=== PATIENT | male | born 1955 | race African-American/Black ===

== ENCOUNTER 2018-12-02 13:36 | Inpatient (IN) | payer OTHER ==
[2018-12-02 17:53] VITALS: BMI 28.2
--- NOTE | 2018-12-02 20:16 | HP ---
CIWA Score Nausea/Vomitin (vomiting x 1) Muscle Tremors: 4-Moderate,w/Arms Extend Anxiety: 3 Agitation: 0-Normal Activity Paroxysmal Sweats: 2 Orientation: 0-Oriented Tacttile Disturbances: 0-None Auditory Disturbances: 0-None Visual Disturbances: 0-None Headache: 4-Moderately Severe CIWA-Ar Total Score: 15 - Admission Criteria OASAS Guidelines: Admission for Medically Managed Detox: Requires at least one of the followin. CIWA greater than 12 2. Seizures within the past 24 hours 3. Delirium tremens within the past 24 hours 4. Hallucinations within the past 24 hours 5. Acute intervention needed for co occurring medical disorder 6. Acute intervention needed for co occurring psychiatric disorder 7. Severe withdrawal that cannot be handled at a lower level of care (continued vomiting, continued diarrhea, abnormal vital signs) requiring intravenous medication and/or fluids 8. Admission ROS [facility] Chief Complaint: Seeking admission to detox for alcohol, benzo. and heroin dependence Allergies/Adverse Reactions: Allergies Allergy/AdvReac Type Severity Reaction Status Date / Time No Known Allergies Allergy Verified 12/02/18 20:18 History of Present Illness: 63 years old male with a long history of alcohol, heroine and benzo. dependence is seeking admission to detox. This is his first admission to [facility] but patient reports previous admissions to detox, last at [facility]. He has medical history of Prostate cancer, depression, hypertension, arthritis and insomnia. He denies suicide attempt and suicidal ideation at his time. He reports that he is on Methadone 75mg tablet oral daily with [facility] MMTP. Dose is yet to be confirmed by the nurse. - Ebola screening Have you traveled outside of the country in the last 21 days: No Have you had contact with anyone from an Ebola affected area: No Have you been sick,other than usual withdrawal symptoms: No Do you have a fever: No - Review of Systems Constitutional: Chills, Malaise, Night Sweats EENT: reports: Blurred Vision Respiratory: reports: No Symptoms reported Cardiac: reports: No Symptoms Reported GI: reports: Diarrhea, Poor Appetite, Poor Fluid Intake, Vomiting, Abdominal cramping : reports: No Symptoms Reported Musculoskeletal: reports: Back Pain, Joint Pain Integumentary: reports: Dryness, Flushing Neuro: reports: Tremors Endocrine: reports: No Symptoms Reported Hematology: reports: No Symptoms Reported Psychiatric: reports: Anxious, Depressed Other Systems: Reviewed and Negative Patient History - Patient Medical History Hx Anemia: No Hx Asthma: No Hx Chronic Obstructive Pulmonary Disease (COPD): No Hx Cancer: Yes (PROSTATE CANCER TREATED 2017 WITH RADIATION) Hx Cardiac Disorders: No Hx Congestive Heart Failure: No Hx Hypertension: Yes (NOT ON MEDICATION) Hx Hypercholesterolemia: No Hx Pacemaker: No HX Cerebrovascular Accident: No Hx Seizures: No Hx Dementia: No Hx Diabetes: No Hx Gastrointestinal Disorders: No Hx Genitourinary Disorders: Yes (PROSTATE CANCER) Hx Sexually Transmitted Disorders: No Hx Renal Disease (ESRD): No Hx Thyroid Disease: No Hx Human Immunodeficiency Virus (HIV): No (NEGATIVE 2016) Hx Hepatitis C: No Hx Depression: Yes (TRAZODONE) Hx Suicide Attempt: No (DENIES SUICIDAL IDEATION AT THIS TIME) Hx Bipolar Disorder: Yes (NOT ON MEDICATION) Hx Schizophrenia: No Other Medical History: ANXIETY- NOT ON MEDICATION - Patient Surgical History Past Surgical History: No - PPD History Previous Implant?: Yes Documented Results: Negative w/o proof Implanted On Prior R Admission?: No PPD to be Administered?: Yes - Reproductive History Patient is a Female of Child Bearing Age (11 -55 yrs old): No (MALE) - Smoking Cessation Smoking history: Current every day smoker Have you smoked in the past 12 months: Yes Aproximately how many cigarettes per day: 10 Hx Chewing Tobacco Use: No Initiated information on smoking cessation: Yes 'Breaking Loose' booklet given: 12/02/18 - Substance & Tx. History Hx Alcohol Use: Yes Hx Substance Use: Yes Substance Use Type: Alcohol, Cocaine, Heroin, Opiates Hx Substance Use [facility]: Yes [facility] - Substances Abused Alprazolam (Xanax) Route: Oral Frequency: Daily Amount used: 2/2MG Age of first use: 58 Date of Last Use: 12/02/18 Benzodiazepine (Klonopin) Route: Oral Frequency: Daily Amount used: 2/2MG Age of first use: 58 Date of Last Use: 12/02/18 Heroin Route: SNIFF Frequency: Daily Amount used: 4 BAGS Age of first use: 25 Date of Last Use: 12/02/18 Alcohol Route: Oral Frequency: Daily Amount used: RUM- 1 PINT Age of first use: 14 Date of Last Use: 12/02/18 Family Disease History - Family Disease History Family History: Denies Admission Physical Exam [facility] - Vital Signs Vital Signs: Vital Signs - 24 hr 12/02/18 17:48 Temperature 97.1 F L Pulse Rate 60 Respiratory 18 Rate Blood Pressure 138/87 - Physical General Appearance: Yes: Moderate Distress, Tremorous, Irritable, Sweating, Anxious HEENTM: Yes: EOMI, Normal ENT Inspection, Normal Voice, TIP Respiratory: Yes: Lungs Clear, Normal Breath Sounds, No Respiratory Distress Neck: Yes: Supple Breast: Yes: Breast Exam Deferred Cardiology: Yes: Regular Rhythm, Regular Rate Abdominal: Yes: Normal Bowel Sounds, Soft Genitourinary: Yes: Within Normal Limits Back: Yes: Normal Inspection Musculoskeletal: Yes: Within Normal Limits Extremities: Yes: Tremors Neurological: Yes: Alert, Normal Mood/Affect Integumentary: Yes: Warm Lymphatic: Yes: Within Normal Limits - Diagnostic (1) Alcohol dependence with uncomplicated withdrawal Current Visit: Yes Status: Chronic (2) Opioid dependence with withdrawal Current Visit: Yes Status: Chronic (3) Sedative, hypnotic or anxiolytic dependence with withdrawal, uncomplicated Current Visit: Yes Status: Chronic (4) Prostate cancer Current Visit: Yes Status: Resolved (5) Hypertension Current Visit: Yes Status: Chronic Qualifiers: Hypertension type: essential hypertension Qualified Code(s): I10 - Essential (primary) hypertension (6) Depression Current Visit: Yes Status: Chronic (7) Bipolar disorder Current Visit: Yes Status: Acute (8) Arthritis Current Visit: Yes Status: Acute (9) Insomnia Current Visit: Yes Status: Chronic Cleared for Admission [facility] - Detox or Rehab [facility] Level of Care: Medically Managed Detox Regimen/Protocol: Valium [facility] Breath Alcohol Content Breath Alcohol Content: 0.010 Urine Drug Screen - Results Urine Drug Screen Results: LIZETT-Cocaine, OPI-Opiates, BZO-Benzodiazepines, MTD- Methadone, FEN-Fentanyl Inpatient Rehab Admission - Rehab Decision to Admit Inpatient rehab admission?: No
[2018-12-02] MEDS ORDERED: MENTHOL/PHENOL 1 EACH UD MM PRN (20:39)
[2018-12-02] MEDS ORDERED: IBUPROFEN 400 MG TABLET (FP) PO PRN (20:39)
[2018-12-02] MEDS ORDERED: MAGNESIUM HYDROX 2400MG/30ML ORAL SUSPENSION 30 ML CUP PO PRN (20:39)
[2018-12-02] MEDS ORDERED: NICOTINE POLACRILEX 2 MG GUM BUC PRN (20:39)
[2018-12-02] MEDS ORDERED: hydrOXYzine PAMOATE 25 MG CAPSULE (FP) PO PRN (20:39)
[2018-12-02] MEDS ORDERED: ACETAMINOPHEN 325 MG TABLET (FP) PO PRN ×2 (20:39)
[2018-12-02] MEDS ORDERED: METHOCARBAMOL 500 MG TABLET PO PRN (20:39)
[2018-12-02] MEDS ORDERED: MELATONIN 5 MG TABLETS PO PRN (20:39)
[2018-12-02] MEDS ORDERED: BISMUTH SUBSALICYLATE 524 MG/30 ML UD PO PRN (20:39)
[2018-12-02] MEDS ORDERED: MAG HYDROX/AL HYDROX/SIMETH 30 ML UNIT-DOSE CUP PO PRN (20:39)
[2018-12-02] MEDS ORDERED: MAGNESIUM CITRATE 300 ML BOTTLE PO PRN (20:39)
[2018-12-02] MEDS ORDERED: diazePAM 5 MG TABLET PO ONE (20:42)
[2018-12-02] MEDS: THIAMINE HCL 100 MG TABLET (FP) PO SCH (22:47)
[2018-12-02] MEDS: diazePAM 5 MG TABLET PO SCH (22:52)
[2018-12-03] MEDS: diazePAM 5 MG TABLET PO SCH ×3 (05:08→22:05)
[2018-12-03] MEDS: diazePAM 5 MG TABLET PO PRN (08:44)
[2018-12-03] MEDS ORDERED: METHADONE HCL 10 MG TABLET ONE (09:55)
[2018-12-03] MEDS ORDERED: METHADONE HCL 40 MG DISPERSABLE TABLET ONE (09:56)
[2018-12-03] MEDS ORDERED: METHADONE HCL 5 MG TABLET ONE (09:56)
[2018-12-03] MEDS ORDERED: METHADONE 40 MG, METHADONE 30 MG, METHADONE 5 MG PO ONE (10:00)
[2018-12-03] MEDS ORDERED: METHADONE HCL 10 MG TABLET PO ONE (10:00)
[2018-12-03] MEDS: NICOTINE 14 MG/24 HOURS TOPICAL PATCH TD SCH (10:13)
[2018-12-03] MEDS: PRENATAL VITAMINS W/ FOLIC ACID TABLET (FP) PO SCH (10:14)
[2018-12-03 11:05] LABS: HEMATOCRIT 38.8 % (35.4-49); HEMOGLOBIN 13.4 GM/dL (11.7-16.9); MCH 29.7 pg (25.7-33.7); MCHC 34.5 g/dl (32.0-35.9); MEAN CELL VOLUME 86.3 fl (80-96); MEAN PLT VOLUME 7.4 fl (7.5-11.1); PLATELET COUNT 175 K/MM3 (134-434); RBC 4.49 M/mm3 (4.00-5.60); RDW 14.4 % (11.9-15.9); WHITE BLOOD COUNT 2.8 K/mm3 (4.0-10.0)
--- NOTE | 2018-12-03 11:14 | PN ---
S CIWA - CIWA Score Nausea/Vomitin-No Nausea/No Vomiting Muscle Tremors: 2 Anxiety: 3 Agitation: 2 Paroxysmal Sweats: 1-Minimal Palms Moist Orientation: 1-Uncertain about Date Tacttile Disturbances: 0-None Auditory Disturbances: 0-None Visual Disturbances: 0-None Headache: 2-Mild CIWA-Ar Total Score: 11 [facility] Progress Note (SOAP) Subjective: feeling better after methadone 75 mg and valium helps Objective: 12/03/18 11:15 Vital Signs Temperature 96.7 F L 12/03/18 09:57 Pulse Rate 63 12/03/18 09:57 Respiratory Rate 12/03/18 09:57 Blood Pressure 123/81 12/03/18 09:57 O2 Sat by Pulse Oximetry (%) 12/03/18 11:15 lab pending Assessment: 12/03/18 11:15 alcohol and benzo withdrawal sx Plan: continue detox
[2018-12-03 11:38] LABS: ALBUMIN 3.3 g/dl (3.4-5.0); ALK PHOS 391 U/L (45-117); ANION GAP 7 MMOL/L (8-16); BILIRUBIN,TOTAL 0.3 mg/dL (0.2-1); BLOOD UREA NITROGEN 15 mg/dL (7-18); CALCIUM 8.6 mg/dL (8.5-10.1); CHLORIDE 104 mmol/L (98-107); CO2 30 mmol/L (21-32); CREATININE 0.9 mg/dL (0.55-1.3); GLUCOSE,RANDOM 87 mg/dL (74-106); POTASSIUM 3.6 mmol/L (3.5-5.1); SGOT/AST 42 U/L (15-37); SGPT/ALT 32 U/L (13-61); SODIUM 141 mmol/L (136-145); TOT PROT 6.5 g/dl (6.4-8.2)
--- NOTE | 2018-12-03 12:36 | CONSULT ---
[facility] Psychiatric Consult - Data Date of interview: 12/03/18 Admission source: [facility] Identifying data: Patient is a 63 year old single male, father of two, unemployed, domiciled, and is supported by [facility]. This is patient's first admission to detox. Patient admitted to for alcohol, opiate, and benzodiazepine dependence. Substance Abuse History: Substances Abused. Alprazolam (Xanax). Route: Oral. Frequency: Daily. Amount used: 2/2MG. Age of first use: 58. Date of Last Use: 12/02/18. Benzodiazepine (Klonopin). Route: Oral. Frequency: Daily. Amount used: 2/2MG. Age of first use: 58. Date of Last Use: 12/02/18. Heroin. Route: SNIFF. Frequency: Daily. Amount used: 4 BAGS. Age of first use: 25. Date of Last Use: 12/02/18. Alcohol. Route: Oral. Frequency: Daily. Amount used: RUM- 1 PINT. Age of first use: 14. Date of Last Use: 12/02/18 Medical History: hypertension, Prostate cancer Psychiatric History: Patient's first psychiatric contact was in [id number] to address depression. He saw a psychiatrist in an outpatient clinic and was prescribed trazodone (unknown dose). He denies h/o psychiatric hospitalization and suicide attempt. Patient is no longer receiving outpatient psychiatric care. He is currently on methadone maintenance of 70 mg daily at [facility]. At present he reports feeling sad and is experiencing difficulty sleeping. Physical/Sexual Abuse/Trauma History: denies. Mental Status Exam - Mental Status Exam Alert and Oriented to: Time, Place, Person Cognitive Function: Good Patient Appearance: Well Groomed Mood: Sad Affect: Mood Congruent Patient Behavior: Appropriate, Cooperative Speech Pattern: Appropriate Voice Loudness: Normal Thought Process: Intact, Goal Oriented Thought Disorder: Not Present Hallucinations: Denies Suicidal Ideation: Denies Homicidal Ideation: Denies Insight/Judgement: Poor Sleep: Poorly Appetite: Fair Muscle strength/Tone: Normal Gait/Station: Normal Psychiatric Findings - Problem List ([place] 1, 2,3) (1) Methadone maintenance therapy patient Current Visit: Yes Status: Acute (2) Cocaine dependence Current Visit: Yes Status: Chronic (3) Alcohol dependence with uncomplicated withdrawal Current Visit: Yes Status: Acute (4) Sedative, hypnotic or anxiolytic dependence with withdrawal, uncomplicated Current Visit: Yes Status: Acute (5) Substance induced mood disorder Current Visit: Yes Status: Acute (6) Substance-induced sleep disorder Current Visit: Yes Status: Acute - Initial Treatment Plan Initial Treatment Plan: Psycheducation provided. Detoxification in progress. Will order Trazodone 50mg HS. Benefits and side effects discussed. Patient made aware of the risk of priapism. Verbal consent given.
[2018-12-03] MEDS: TAMSULOSIN HCL 0.4 MG CAP PO SCH (14:36)
[2018-12-03] MEDS: THIAMINE HCL 100 MG TABLET (FP) PO SCH (22:06)
[2018-12-03] MEDS: traZODone HCL 50 MG TABLET (FP) PO SCH (22:06)
[2018-12-04] MEDS ORDERED: METHADONE HCL 10 MG TABLET ONE (04:34)
[2018-12-04] MEDS ORDERED: METHADONE HCL 40 MG DISPERSABLE TABLET ONE (04:34)
[2018-12-04] MEDS ORDERED: METHADONE HCL 5 MG TABLET ONE (04:35)
[2018-12-04] MEDS: METHADONE 40 MG, METHADONE 30 MG, METHADONE 5 MG PO SCH (05:11)
[2018-12-04] MEDS: diazePAM 5 MG TABLET PO PRN (05:14)
[2018-12-04] MEDS ORDERED: METHADONE HCL 10 MG TABLET PO SCH (06:00)
[2018-12-04] MEDS: TAMSULOSIN HCL 0.4 MG CAP PO SCH (10:08)
[2018-12-04] MEDS: PRENATAL VITAMINS W/ FOLIC ACID TABLET (FP) PO SCH (10:08)
[2018-12-04] MEDS: diazePAM 5 MG TABLET PO SCH ×2 (10:09→22:03)
[2018-12-04] MEDS: NICOTINE 14 MG/24 HOURS TOPICAL PATCH TD SCH (10:09)
--- NOTE | 2018-12-04 15:30 | PN ---
[facility] CIWA - CIWA Score Nausea/Vomitin-No Nausea/No Vomiting Muscle Tremors: 3 Anxiety: 2 Agitation: 0-Normal Activity Paroxysmal Sweats: 2 Orientation: 0-Oriented Tacttile Disturbances: 2-Mild Itch/Numbness/Burn Auditory Disturbances: 0-None Visual Disturbances: 1-Very Mild Sensitivity Headache: 0-None Present CIWA-Ar Total Score: 10 [facility] Progress Note (SOAP) Subjective: Body Aches, Fatigue. Objective: PATIENT A & O X 3. IN NO ACUTE DISTRESS. 12/04/18 15:31 Vital Signs Temperature 97 F L 12/04/18 13:42 Pulse Rate 71 12/04/18 13:42 Respiratory Rate 18 12/04/18 13:42 Blood Pressure 138/74 12/04/18 13:42 O2 Sat by Pulse Oximetry (%) Laboratory Tests 12/03/18 12/03/18 12/03/18 07:30 07:30 07:30 WBC 2.8 L RBC 4.49 Hgb 13.4 Hct 38.8 MCV 86.3 MCH 29.7 MCHC 34.5 RDW 14.4 Plt Count 175 MPV 7.4 L Sodium 141 Potassium 3.6 Chloride 104 Carbon Dioxide 30 Anion Gap 7 L BUN 15 Creatinine 0.9 Creat Clearance w eGFR 84.69 Random Glucose 87 Calcium 8.6 Total Bilirubin 0.3 AST 42 H ALT 32 Alkaline Phosphatase 391 H Total Protein 6.5 Albumin 3.3 L RPR Titer Nonreactive LABS NOTED. Assessment: 12/04/18 15:31 WITHDRAWAL SYMPTOMS. ELEVATED ALKALINE PHOSPHATASE LEVEL. LEUKOPENIA. 12/04/18 15:32 Plan: CONTINUE DETOX. PATIENT ADVISED TO FOLLOW-UP WITH DRUPAL DEVELOPER SOON POSSIBLE AFTER DISCHARGE FROM DETOX UNIT FOR GENERAL MEDICAL ASSESSMENT AND FOR ELEVATED ALKALINE PHOSPHATASE LEVEL NOTED WHILE ADMITTED FOR DETOX. PATIENT VERBALIZED UNDERSTANDING OF RECOMMENDATION. COPIES OF RESULTS OF ALL LABS DRAWN WHILE ADMITTED FOR DETOX WILL BE GIVEN TO PATIENT AT TIME OF DISCHARGE FROM DETOX UNIT
[2018-12-04] MEDS: METHYL SALICYLATE/MENTHOL OINT 30 GM TUBE TP SCH (18:00)
[2018-12-04] MEDS: traZODone HCL 50 MG TABLET (FP) PO SCH (22:03)
[2018-12-04] MEDS: THIAMINE HCL 100 MG TABLET (FP) PO SCH (22:03)
[2018-12-05] MEDS ORDERED: METHADONE HCL 10 MG TABLET ONE (04:48)
[2018-12-05] MEDS ORDERED: METHADONE HCL 5 MG TABLET ONE (04:48)
[2018-12-05] MEDS ORDERED: METHADONE HCL 40 MG DISPERSABLE TABLET ONE (04:48)
[2018-12-05] MEDS: METHADONE 40 MG, METHADONE 30 MG, METHADONE 5 MG PO SCH (05:08)
[2018-12-05] MEDS ORDERED: diazePAM 5 MG TABLET PO SCH (06:00)
[2018-12-05] MEDS: METHYL SALICYLATE/MENTHOL OINT 30 GM TUBE TP SCH (10:12)
[2018-12-05] MEDS: PRENATAL VITAMINS W/ FOLIC ACID TABLET (FP) PO SCH (10:12)
[2018-12-05] MEDS: TAMSULOSIN HCL 0.4 MG CAP PO SCH (10:12)
[2018-12-05] MEDS: NICOTINE 14 MG/24 HOURS TOPICAL PATCH TD SCH (10:13)
--- NOTE | 2018-12-05 15:29 | PN ---
[facility] Progress Note (SOAP) Subjective: Sweating, Fatigue, Anxious, Interrupted Sleep. Objective: PATIENT A & O X 3, OBSERVED AMBULATING ON UNIT. IN NO ACUTE DISTRESS. 12/05/18 15:27 Vital Signs Temperature 97.7 F 12/05/18 13:39 Pulse Rate 70 12/05/18 13:39 Respiratory Rate 18 12/05/18 13:39 Blood Pressure 134/81 12/05/18 13:39 O2 Sat by Pulse Oximetry (%) Laboratory Tests 12/03/18 12/03/18 12/03/18 07:30 07:30 07:30 WBC 2.8 L RBC 4.49 Hgb 13.4 Hct 38.8 MCV 86.3 MCH 29.7 MCHC 34.5 RDW 14.4 Plt Count 175 MPV 7.4 L Sodium 141 Potassium 3.6 Chloride 104 Carbon Dioxide 30 Anion Gap 7 L BUN 15 Creatinine 0.9 Creat Clearance w eGFR 84.69 Random Glucose 87 Calcium 8.6 Total Bilirubin 0.3 AST 42 H ALT 32 Alkaline Phosphatase 391 H Total Protein 6.5 Albumin 3.3 L RPR Titer Nonreactive LABS NOTED. Assessment: 12/05/18 15:28 WITHDRAWAL SYMPTOMS. LEUKOPENIA. ELEVATED ALKALINE PHOSPHATASE LEVEL. PATIENT REPORTS HISTORY OF PROSTATE CA (WITH TREATMENT) AND OF HTN. PATIENT DENIES ANY OTHER SIGNIFICANT CHRONIC MEDICAL HISTORY. 12/05/18 15:28 Plan: CONTINUE DETOX. DUE TO PRESENCE AND SEVERITY OF LINGERING WITHDRAWAL SYMPTOMS, PATIENT PERMITTED TO REMAIN ON DETOX UNIT UNTIL TOMORROW AM.
--- NOTE | 2018-12-05 17:05 | EKG ---
Test Reason : Blood Pressure : / mmHG Vent. Rate : 059 BPM Atrial Rate : 059 BPM P-R Int : 146 ms QRS Dur : 078 ms QT Int : 430 ms P-R-T Axes : 050 056 048 degrees QTc Int : 425 ms SINUS BRADYCARDIA OTHERWISE NORMAL ECG NO PREVIOUS ECGS AVAILABLE Confirmed by ALISSA RICHEY MD ([id number]) on 12/05/2018 5:05:17 PM Referred By: Confirmed By:ALISSA RICHEY MD
[2018-12-05] MEDS: traZODone HCL 50 MG TABLET (FP) PO SCH (22:18)
[2018-12-05] MEDS: THIAMINE HCL 100 MG TABLET (FP) PO SCH (22:18)
[2018-12-06] MEDS ORDERED: METHADONE HCL 40 MG DISPERSABLE TABLET ONE (03:40)
[2018-12-06] MEDS ORDERED: METHADONE HCL 5 MG TABLET ONE (03:40)
[2018-12-06] MEDS ORDERED: METHADONE HCL 10 MG TABLET ONE (03:40)
[2018-12-06] MEDS: METHADONE 40 MG, METHADONE 30 MG, METHADONE 5 MG PO SCH (05:40)
[2018-12-06 06:22] VITALS: BP 126/71; PULSE 59; TEMP 98
--- NOTE | 2018-12-06 08:38 | DS ---
[facility] Detox Discharge Summary Admission Date: 12/02/18 Discharge Date: 12/06/18 - History Present History: Alcohol Dependence, Sedative Dependence Additional Comments: 63 years old male admitted on 12/02/18 for alcohol and benzo withdrawal stabilization completed detox regimen aftercare patient preferring return to methadone program for medical and mental issues Pertinent Past History: keep medication list in wallet medication adherence update medication list when change medication bring in lab report to follow up appointment - Physical Exam Results Vital Signs: Vital Signs Temperature 98.0 F 12/06/18 06:21 Pulse Rate 59 L 12/06/18 06:21 Respiratory Rate 18 12/06/18 06:26 Blood Pressure 126/71 12/06/18 06:21 O2 Sat by Pulse Oximetry (%) Pertinent Admission Physical Exam Findings: alcohol and benzo withdrawal sx Laboratory Last Values WBC 2.8 K/mm3 (4.0-10.0) L 12/03/18 07:30 RBC 4.49 M/mm3 (4.00-5.60) 12/03/18 07:30 Hgb 13.4 GM/dL (11.7-16.9) 12/03/18 07:30 Hct 38.8 % (35.4-49) 12/03/18 07:30 MCV 86.3 fl (80-96) 12/03/18 07:30 MCH 29.7 pg (25.7-33.7) 12/03/18 07:30 MCHC 34.5 g/dl (32.0-35.9) 12/03/18 07:30 RDW 14.4 % (11.9-15.9) 12/03/18 07:30 Plt Count 175 K/MM3 (134-434) 12/03/18 07:30 MPV 7.4 fl (7.5-11.1) L 12/03/18 07:30 Sodium 141 mmol/L (136-145) 12/03/18 07:30 Potassium 3.6 mmol/L (3.5-5.1) 12/03/18 07:30 Chloride 104 mmol/L (98-107) 12/03/18 07:30 Carbon Dioxide 30 mmol/L (21-32) 12/03/18 07:30 Anion Gap 7 MMOL/L (8-16) L 12/03/18 07:30 BUN 15 mg/dL (7-18) 12/03/18 07:30 Creatinine 0.9 mg/dL (0.55-1.3) 12/03/18 07:30 Creat Clearance w eGFR 84.69 (>60) 12/03/18 07:30 Random Glucose 87 mg/dL (74-106) 12/03/18 07:30 Calcium 8.6 mg/dL (8.5-10.1) 12/03/18 07:30 Total Bilirubin 0.3 mg/dL (0.2-1) 12/03/18 07:30 AST 42 U/L (15-37) H 12/03/18 07:30 ALT 32 U/L (13-61) 12/03/18 07:30 Alkaline Phosphatase 391 U/L (45-117) H 12/03/18 07:30 Total Protein 6.5 g/dl (6.4-8.2) 12/03/18 07:30 Albumin 3.3 g/dl (3.4-5.0) L 12/03/18 07:30 RPR Titer Nonreactive (NONREACTIVE) 12/03/18 07:30 lab noted - Treatment Hospital Course: Detox Protocol Followed, Detoxed Safely, Responded well, Discharged Condition Good, Rehab Referral Accepted Patient has Accepted a Rehab Referral to: methadone maintenance program - Medication Discharge Medications: Ambulatory Orders Tamsulosin HCl [Flomax] 0.4 mg PO DAILY 14 Days #14 capsule 12/05/18 - Diagnosis (1) Alcohol dependence with uncomplicated withdrawal Status: Acute (2) Sedative, hypnotic or anxiolytic dependence with withdrawal, uncomplicated Status: Acute (3) Hypertension Status: Chronic Qualifiers: Hypertension type: essential hypertension Qualified Code(s): I10 - Essential (primary) hypertension (4) Methadone maintenance therapy patient Status: Chronic (5) Substance induced mood disorder Status: Suspected - AMA Did Patient Leave Against Medical Advice: No
== END 2018-12-06 09:27 | disposition home or self-care (01) | DRG 897 ==
LOC: YASAS 13:36 → Y3N 19:53
PROVIDERS: ADMIT Surgery; ATTEND Surgery
PROC: HZ2ZZZZ Detoxification Services for Substance Abuse Treatment (ICD-10-PCS; principal; 2018-12-02)
DX: F10.230 Alcohol dependence with withdrawal, uncomplicated (principal); F14.20 Cocaine dependence, uncomplicated; F11.20 Opioid dependence, uncomplicated; F19.282 Other psychoactive substance dependence with psychoactive substance-induced sleep disorder; F13.230 Sedative, hypnotic or anxiolytic dependence with withdrawal, uncomplicated; F19.24 Other psychoactive substance dependence with psychoactive substance-induced mood disorder; F41.8 Other specified anxiety disorders; F31.9 Bipolar disorder, unspecified; G47.00 Insomnia, unspecified; D72.819 Decreased white blood cell count, unspecified; R74.8 Abnormal levels of other serum enzymes; M12.9 Arthropathy, unspecified; Z85.46 Personal history of malignant neoplasm of prostate
CPT/HCPCS: 36415; 80053; 85027; 86593; 93005; 93010

== ENCOUNTER 2019-01-30 16:29 | Inpatient (IN) | payer OTHER ==
--- NOTE | 2019-01-30 20:09 | HP ---
COWS - Scale Resting Pulse: 1= IA 81-100 Sweatin=Flushed/Facial Moisture Restless Observation: 1= Difficult to Sit Still Pupil Size: 1= Pupils >than Normal Bone or Joint Aches: 1= Mild Discomfort Runny Nose/ Eye Tearin= Nasal Congestion GI Upset > 30mins: 1= Stomach Cramp Tremor Observation: 2= Slight Tremor Visible Yawning Observation: 0= None Anxiety or Irritability: 1=Feels Anxious/Irritable Goose Flesh Skin: 0=Smooth Skin COWS Score: 11 CIWA Score Nausea/Vomitin Muscle Tremors: 2 Anxiety: 2 Agitation: 2 Paroxysmal Sweats: 2 Orientation: 0-Oriented Tacttile Disturbances: 2-Mild Itch/Numbness/Burn Auditory Disturbances: 2-Mild Harshness/Frighten Visual Disturbances: 2-Mild Sensitivity Headache: 2-Mild CIWA-Ar Total Score: 18 - Admission Criteria OASAS Guidelines: Admission for Medically Managed Detox: Requires at least one of the followin. CIWA greater than 12 2. Seizures within the past 24 hours 3. Delirium tremens within the past 24 hours 4. Hallucinations within the past 24 hours 5. Acute intervention needed for co occurring medical disorder 6. Acute intervention needed for co occurring psychiatric disorder 7. Severe withdrawal that cannot be handled at a lower level of care (continued vomiting, continued diarrhea, abnormal vital signs) requiring intravenous medication and/or fluids 8. Admission ROS [facility] - HPI Chief Complaint: DEPENDENT ON ETOH, HEROIN, COCAINE AND XANAX HE IS ON 80 MGS. OF MMTP - LAST DOSE THIS AM Allergies/Adverse Reactions: Allergies Allergy/AdvReac Type Severity Reaction Status Date / Time No Known Allergies Allergy Verified 12/02/18 20:18 History of Present Illness: THE PT. IS REQUESTING ADMISSION TO THE DETOX UNIT AND CAME FOR MEDICAL CLEARANCE AND H AND PE Exam Limitations: No Limitations - Ebola screening Have you traveled outside of the country in the last 21 days: No Have you had contact with anyone from an Ebola affected area: No Have you been sick,other than usual withdrawal symptoms: No - Review of Systems Constitutional: See HPI, Malaise, Weakness EENT: reports: See HPI Respiratory: reports: See HPI Cardiac: reports: See HPI GI: reports: See HPI, Nausea, Abdominal cramping : reports: See HPI Musculoskeletal: reports: See HPI, Muscle Pain, Muscle Weakness Integumentary: reports: See HPI, Sweating Neuro: reports: See HPI, Headache, Tremors, Weakness Endocrine: reports: See HPI Hematology: reports: See HPI Psychiatric: reports: Judgement Intact, Orientated x3, Anxious, Depressed Patient History - Patient Medical History Hx Anemia: No Hx Asthma: No Hx Chronic Obstructive Pulmonary Disease (COPD): No Hx Cancer: Yes (PROSTATE CANCER TREATED 2017 WITH RADIATION) Hx Cardiac Disorders: No Hx Congestive Heart Failure: No Hx Hypertension: Yes (NOT ON MEDICATION) Hx Hypercholesterolemia: No Hx Pacemaker: No HX Cerebrovascular Accident: No Hx Seizures: No Hx Dementia: No Hx Diabetes: No Hx Gastrointestinal Disorders: No Hx Genitourinary Disorders: Yes (PROSTATE CANCER) Hx Sexually Transmitted Disorders: No Hx Renal Disease (ESRD): No Hx Thyroid Disease: No Hx Human Immunodeficiency Virus (HIV): No (NEGATIVE 2016) Hx Hepatitis C: No Hx Depression: Yes (TRAZODONE) Hx Suicide Attempt: No (DENIES SUICIDAL IDEATION AT THIS TIME) Hx Bipolar Disorder: Yes (NOT ON MEDICATION) Hx Schizophrenia: No Other Medical History: ANXIETY AND INSOMNIA - Patient Surgical History Past Surgical History: No - PPD History Date: 12/04/18 - Smoking Cessation Smoking history: Current every day smoker Have you smoked in the past 12 months: Yes Aproximately how many cigarettes per day: 1 Hx Chewing Tobacco Use: No Initiated information on smoking cessation: Yes 'Breaking Loose' booklet given: 01/30/19 - Substance & Tx. History Hx Alcohol Use: Yes Hx Substance Use: Yes Substance Use Type: Alcohol, Cocaine, Heroin, Prescribed, Tranquilizers Hx Substance Use Treatment: Yes - Substances abused Heroin Substance route: Injection Frequency: 3-6 times per week Amount used: up to 10 B/EACH TIME Age of first use: 21 Date of last use: 01/28/19 Alcohol Substance route: Oral Frequency: Daily Amount used: LIQUOR 1-2 P/D Age of first use: 14 Date of last use: 01/30/19 Alprazolam (Xanax) Substance route: Oral Frequency: Daily Amount used: 4-5 STICKS/D Age of first use: 53 Date of last use: 01/30/19 Cocaine Substance route: Smoking Frequency: 3-6 times per week Amount used: $100/EACH TIME Age of first use: 28 Date of last use: 01/30/19 Family Disease History - Family Disease History Family History: Denies Admission Physical Exam [facility] - Physical General Appearance: Yes: No Apparent Distress, Nourished, Appropriately Dressed , Tremorous, Sweating, Anxious HEENTM: Yes: Hearing grossly Normal, Normocephalic, Normal Voice, TIP, Pharynx Normal Respiratory: Yes: Chest Non-Tender, Lungs Clear, Normal Breath Sounds, No Respiratory Distress, No Accessory Muscle Use Neck: Yes: No masses,lesions,Nodules, Supple, Trachea in good position Breast: Yes: Breast Exam Deferred, Axillae without masses Cardiology: Yes: Regular Rhythm, S1, S2, Tachycardia Abdominal: Yes: Normal Bowel Sounds, Non Tender, Soft, Protuberent Back: Yes: Normal Inspection Musculoskeletal: Yes: full range of Motion, Gait Steady, Pelvis Stable, Muscle Pain, Muscle weakness Extremities: Yes: Normal Capillary Refill, Normal Range of Motion, Non-Tender, Tremors Neurological: Yes: bicycle designer II-XII NML intact, Fully Oriented, Alert, Motor Strength 5/5, Normal Response Integumentary: Yes: Normal Color, Warm, Moist Lymphatic: Yes: Within Normal Limits - Diagnostic (1) Heroin dependence Current Visit: Yes Status: Chronic (2) Alcohol dependence with uncomplicated withdrawal Current Visit: No Status: Chronic (3) Bipolar disorder Current Visit: No Status: Chronic Qualifiers: Active/Remission status: remission status unspecified Qualified Code(s): F31.9 - Bipolar disorder, unspecified (4) Sedative, hypnotic or anxiolytic dependence with withdrawal, uncomplicated Current Visit: No Status: Chronic (5) Cocaine dependence Current Visit: No Status: Chronic Qualifiers: Substance use status: uncomplicated Qualified Code(s): F14.20 - Cocaine dependence, uncomplicated (6) Depression Current Visit: No Status: Chronic Qualifiers: Depression Type: unspecified Qualified Code(s): F32.9 - Major depressive disorder, single episode, unspecified (7) Hypertension Current Visit: No Status: Chronic Qualifiers: Hypertension type: essential hypertension Qualified Code(s): I10 - Essential (primary) hypertension (8) Insomnia Current Visit: No Status: Chronic Qualifiers: Insomnia type: unspecified Qualified Code(s): G47.00 - Insomnia, unspecified (9) Methadone maintenance therapy patient Current Visit: No Status: Chronic (10) Prostate cancer Current Visit: No Status: Resolved Cleared for Admission [facility] - Detox or Rehab [facility] Level of Care: Medically Supervised Detox Regimen/Protocol: Valium Inpatient Rehab Admission - Rehab Decision to Admit Inpatient rehab admission?: No
[2019-01-30] MEDS ORDERED: MELATONIN 5 MG TABLETS PO PRN (20:19)
[2019-01-30] MEDS ORDERED: NICOTINE POLACRILEX 2 MG GUM BUC PRN (20:19)
[2019-01-30] MEDS ORDERED: IBUPROFEN 400 MG TABLET (FP) PO PRN (20:19)
[2019-01-30] MEDS ORDERED: hydrOXYzine PAMOATE 25 MG CAPSULE (FP) PO PRN (20:19)
[2019-01-30] MEDS ORDERED: ACETAMINOPHEN 325 MG TABLET (FP) PO PRN ×2 (20:19)
[2019-01-30] MEDS ORDERED: METHOCARBAMOL 500 MG TABLET PO PRN (20:19)
[2019-01-30] MEDS ORDERED: diazePAM 5 MG TABLET PO ONE (20:19)
[2019-01-30] MEDS ORDERED: MAGNESIUM CITRATE 300 ML BOTTLE PO PRN (20:19)
[2019-01-30] MEDS ORDERED: MENTHOL/PHENOL 1 EACH UD MM PRN (20:19)
[2019-01-30] MEDS ORDERED: MAGNESIUM HYDROX 2400MG/30ML ORAL SUSPENSION 30 ML CUP PO PRN (20:19)
[2019-01-30] MEDS ORDERED: BISMUTH SUBSALICYLATE 524 MG/30 ML UD PO PRN (20:19)
[2019-01-30] MEDS ORDERED: MAG HYDROX/AL HYDROX/SIMETH 30 ML UNIT-DOSE CUP PO PRN (20:19)
[2019-01-30] MEDS ORDERED: traZODone HCL 50 MG TABLET (FP) PO PRN (20:19)
[2019-01-30 21:20] VITALS: BMI 25.7
[2019-01-30] MEDS: THIAMINE HCL 100 MG TABLET (FP) PO SCH (23:21)
[2019-01-30] MEDS: diazePAM 5 MG TABLET PO SCH (23:37)
[2019-01-31] MEDS: diazePAM 5 MG TABLET PO SCH ×3 (06:51→22:22)
--- NOTE | 2019-01-31 09:30 | CONSULT ---
[facility] Psychiatric Consult - Data Date of interview: 01/31/19 Admission source: [facility] Identifying data: 63 y/o male single unemployed, domiciled, father of 2, on SSI re-admitted for the 2nd time to [facility] due to ETOH, Cocaine, Opioids, benzo dependence Substance Abuse History: He has a prior history of Detox admissions at other facilties ([facility]) for his frequent substance use and relapse. He drinkks alcohol daily, IVDA ( heroin) , sniff cocaine. Refer to addiction cousnlelor note for more detailed drug use history Medical History: HTN, Prostate Ca Psychiatric History: He denies prior psychiatric history or treatment , denies depression, psychosis, hannah or anxiety. 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 Records review from previous admission yilds to past history of depression and treatment in an out patient setting Physical/Sexual Abuse/Trauma History: He denies history of abuse or trauma Additional Comment: None Mental Status Exam - Mental Status Exam Alert and Oriented to: Person Cognitive Function: Fair Patient Appearance: Unkempt, Disheveled Mood: Euthymic Affect: Normal Range Patient Behavior: Guarded, Cooperative Speech Pattern: Appropriate Thought Process: Intact Hallucinations: Denies Suicidal Ideation: Denies Homicidal Ideation: Denies Insight/Judgement: Poor Sleep: Fair Appetite: Good Muscle strength/Tone: Normal Gait/Station: Normal Psychiatric Findings - Problem List (Shorter 1, 2,3) (1) Alcohol dependence with uncomplicated withdrawal Current Visit: No Status: Chronic (2) Cocaine dependence Current Visit: No Status: Chronic Qualifiers: Substance use status: uncomplicated Qualified Code(s): F14.20 - Cocaine dependence, uncomplicated (3) Depression Current Visit: No Status: Chronic Qualifiers: Depression Type: unspecified Qualified Code(s): F32.9 - Major depressive disorder, single episode, unspecified (4) Hypertension Current Visit: No Status: Chronic Qualifiers: Hypertension type: essential hypertension Qualified Code(s): I10 - Essential (primary) hypertension (5) Methadone maintenance therapy patient Current Visit: No Status: Chronic (6) Prostate cancer Current Visit: No Status: Resolved - Initial Treatment Plan Initial Treatment Plan: Psychoeduation. Continue in patient detox treatment
[2019-01-31] MEDS: NICOTINE 7 MG/24 HOURS TOPICAL PATCH TD SCH (10:18)
[2019-01-31] MEDS: PRENATAL VITAMINS W/ FOLIC ACID TABLET (FP) PO SCH (10:18)
[2019-01-31] MEDS: diazePAM 5 MG TABLET PO PRN (10:20)
[2019-01-31 10:21] LABS: HEMATOCRIT 40.6 % (35.4-49); HEMOGLOBIN 13.6 GM/dL (11.7-16.9); MCH 29.5 pg (25.7-33.7); MCHC 33.6 g/dl (32.0-35.9); MEAN CELL VOLUME 87.7 fl (80-96); MEAN PLT VOLUME 7.4 fl (7.5-11.1); PLATELET COUNT 178 K/MM3 (134-434); RBC 4.63 M/mm3 (4.00-5.60); RDW 14.4 % (11.9-15.9); WHITE BLOOD COUNT 3.3 K/mm3 (4.0-10.0)
[2019-01-31 10:30] LABS: ALBUMIN 3.1 g/dl (3.4-5.0); BILIRUBIN,TOTAL 0.4 mg/dL (0.2-1); CALCIUM 8.7 mg/dL (8.5-10.1); CREATININE 0.9 mg/dL (0.55-1.3); POTASSIUM 3.6 mmol/L (3.5-5.1)
--- NOTE | 2019-01-31 11:04 | PN ---
S CIWA - CIWA Score Nausea/Vomitin-Mild Nausea/No Vomiting Muscle Tremors: 3 Anxiety: 3 Agitation: 3 Paroxysmal Sweats: 1-Minimal Palms Moist Orientation: 1-Uncertain about Date Tacttile Disturbances: 1-Very Mild Itch/Numbness Auditory Disturbances: 0-None Visual Disturbances: 0-None Headache: 1-Very Mild CIWA-Ar Total Score: 14 BHS Progress Note (SOAP) Subjective: feeling better with valium detox regimen tired low energy "Let me sleep" hesitate to talk to provider Objective: 01/31/19 11:07 Vital Signs Temperature 96.7 F L 01/31/19 09:10 Pulse Rate 79 01/31/19 09:10 Respiratory Rate 18 01/31/19 09:10 Blood Pressure 134/85 01/31/19 09:10 O2 Sat by Pulse Oximetry (%) Laboratory Last Values WBC 3.3 K/mm3 (4.0-10.0) L 01/31/19 07:50 RBC 4.63 M/mm3 (4.00-5.60) 01/31/19 07:50 Hgb 13.6 GM/dL (11.7-16.9) 01/31/19 07:50 Hct 40.6 % (35.4-49) 01/31/19 07:50 MCV 87.7 fl (80-96) 01/31/19 07:50 MCH 29.5 pg (25.7-33.7) 01/31/19 07:50 MCHC 33.6 g/dl (32.0-35.9) 01/31/19 07:50 RDW 14.4 % (11.9-15.9) 01/31/19 07:50 Plt Count 178 K/MM3 (134-434) 01/31/19 07:50 MPV 7.4 fl (7.5-11.1) L 01/31/19 07:50 Sodium 142 mmol/L (136-145) 01/31/19 07:50 Potassium 3.6 mmol/L (3.5-5.1) 01/31/19 07:50 Chloride 105 mmol/L (98-107) 01/31/19 07:50 Carbon Dioxide 30 mmol/L (21-32) 01/31/19 07:50 Anion Gap 6 MMOL/L (8-16) L 01/31/19 07:50 BUN 10 mg/dL (7-18) 01/31/19 07:50 Creatinine 0.9 mg/dL (0.55-1.3) 01/31/19 07:50 Est GFR (CKD-EPI)AfAm 103.51 01/31/19 07:50 Est GFR (CKD-EPI)NonAf 89.31 01/31/19 07:50 Random Glucose 105 mg/dL (74-106) 01/31/19 07:50 Calcium 8.7 mg/dL (8.5-10.1) 01/31/19 07:50 Total Bilirubin 0.4 mg/dL (0.2-1) 01/31/19 07:50 AST 26 U/L (15-37) 01/31/19 07:50 ALT 24 U/L (13-61) 01/31/19 07:50 Alkaline Phosphatase 125 U/L (45-117) H 01/31/19 07:50 Total Protein 6.0 g/dl (6.4-8.2) L 01/31/19 07:50 Albumin 3.1 g/dl (3.4-5.0) L 01/31/19 07:50 lab noted Assessment: 01/31/19 11:07 benzo withdrawal sx Plan: continue detox
[2019-01-31] MEDS ORDERED: METHADONE HCL 40 MG DISPERSABLE TABLET PO ONE (11:17)
[2019-01-31] MEDS ORDERED: TAMSULOSIN HCL 0.4 MG CAP PO SCH (11:30)
[2019-01-31] MEDS: TAMSULOSIN HCL 0.4 MG CAP PO SCH (22:22)
[2019-01-31] MEDS: THIAMINE HCL 100 MG TABLET (FP) PO SCH (22:22)
[2019-02-01] MEDS: diazePAM 5 MG TABLET PO PRN ×2 (06:41→17:23)
[2019-02-01] MEDS ORDERED: METHADONE HCL 40 MG DISPERSABLE TABLET PO ONE (10:00)
[2019-02-01] MEDS: diazePAM 5 MG TABLET PO SCH ×2 (10:27→22:22)
[2019-02-01] MEDS: PRENATAL VITAMINS W/ FOLIC ACID TABLET (FP) PO SCH (10:27)
[2019-02-01] MEDS: NICOTINE 7 MG/24 HOURS TOPICAL PATCH TD SCH (10:29)
--- NOTE | 2019-02-01 11:44 | PN ---
[facility] CIWA - CIWA Score Nausea/Vomitin-Mild Nausea/No Vomiting Muscle Tremors: 2 Anxiety: 2 Agitation: 2 Paroxysmal Sweats: 1-Minimal Palms Moist Orientation: 0-Oriented Tacttile Disturbances: 0-None Auditory Disturbances: 0-None Visual Disturbances: 0-None Headache: 1-Very Mild CIWA-Ar Total Score: 9 S Progress Note (SOAP) Subjective: feeling better today ambulating on hallway social with peers in day room agrees to return to methadone program for medical and mental issues Objective: 02/01/19 11:42 Vital Signs Temperature 97.0 F L 02/01/19 09:21 Pulse Rate 66 02/01/19 09:21 Respiratory Rate 20 02/01/19 09:21 Blood Pressure 131/63 02/01/19 09:21 O2 Sat by Pulse Oximetry (%) Laboratory Last Values WBC 3.3 K/mm3 (4.0-10.0) L 01/31/19 07:50 RBC 4.63 M/mm3 (4.00-5.60) 01/31/19 07:50 Hgb 13.6 GM/dL (11.7-16.9) 01/31/19 07:50 Hct 40.6 % (35.4-49) 01/31/19 07:50 MCV 87.7 fl (80-96) 01/31/19 07:50 MCH 29.5 pg (25.7-33.7) 01/31/19 07:50 MCHC 33.6 g/dl (32.0-35.9) 01/31/19 07:50 RDW 14.4 % (11.9-15.9) 01/31/19 07:50 Plt Count 178 K/MM3 (134-434) 01/31/19 07:50 MPV 7.4 fl (7.5-11.1) L 01/31/19 07:50 Sodium 142 mmol/L (136-145) 01/31/19 07:50 Potassium 3.6 mmol/L (3.5-5.1) 01/31/19 07:50 Chloride 105 mmol/L (98-107) 01/31/19 07:50 Carbon Dioxide 30 mmol/L (21-32) 01/31/19 07:50 Anion Gap 6 MMOL/L (8-16) L 01/31/19 07:50 BUN 10 mg/dL (7-18) 01/31/19 07:50 Creatinine 0.9 mg/dL (0.55-1.3) 01/31/19 07:50 Est GFR (CKD-EPI)AfAm 103.51 01/31/19 07:50 Est GFR (CKD-EPI)NonAf 89.31 01/31/19 07:50 Random Glucose 105 mg/dL (74-106) 01/31/19 07:50 Calcium 8.7 mg/dL (8.5-10.1) 01/31/19 07:50 Total Bilirubin 0.4 mg/dL (0.2-1) 01/31/19 07:50 AST 26 U/L (15-37) 01/31/19 07:50 ALT 24 U/L (13-61) 01/31/19 07:50 Alkaline Phosphatase 125 U/L (45-117) H 01/31/19 07:50 Total Protein 6.0 g/dl (6.4-8.2) L 01/31/19 07:50 Albumin 3.1 g/dl (3.4-5.0) L 01/31/19 07:50 RPR Titer Nonreactive (NONREACTIVE) 01/31/19 07:50 lab noted Assessment: 02/01/19 11:43 withdrawal sx Plan: continue detox
[2019-02-01] MEDS: TAMSULOSIN HCL 0.4 MG CAP PO SCH (22:22)
[2019-02-01] MEDS: THIAMINE HCL 100 MG TABLET (FP) PO SCH (22:22)
[2019-02-02] MEDS ORDERED: diazePAM 5 MG TABLET PO SCH (06:00)
[2019-02-02] MEDS ORDERED: METHADONE HCL 40 MG DISPERSABLE TABLET PO SCH (06:00)
[2019-02-02] MEDS: PRENATAL VITAMINS W/ FOLIC ACID TABLET (FP) PO SCH (10:10)
[2019-02-02] MEDS: NICOTINE 7 MG/24 HOURS TOPICAL PATCH TD SCH (10:10)
[2019-02-02 13:07] VITALS: BP 135/87; PULSE 89; TEMP 97.8
--- NOTE | 2019-02-02 14:54 | DS ---
[facility] Detox Discharge Summary Admission Date: 01/30/19 Discharge Date: 02/02/19 - History Present History: Sedative Dependence Additional Comments: 63 years male admitted 01/30/19 for benzo withdrawal stabilization completed detox regimen aftercare return to methadone maintenance program for medical and mental issues Pertinent Past History: bring in medication list and lab report to follow up appointment - Physical Exam Results Vital Signs: Vital Signs Temperature 97.8 F 02/02/19 13:06 Pulse Rate 89 02/02/19 13:06 Respiratory Rate 16 02/02/19 13:06 Blood Pressure 135/87 02/02/19 13:06 O2 Sat by Pulse Oximetry (%) Pertinent Admission Physical Exam Findings: benzo withdrawal sx Laboratory Last Values WBC 3.3 K/mm3 (4.0-10.0) L 01/31/19 07:50 RBC 4.63 M/mm3 (4.00-5.60) 01/31/19 07:50 Hgb 13.6 GM/dL (11.7-16.9) 01/31/19 07:50 Hct 40.6 % (35.4-49) 01/31/19 07:50 MCV 87.7 fl (80-96) 01/31/19 07:50 MCH 29.5 pg (25.7-33.7) 01/31/19 07:50 MCHC 33.6 g/dl (32.0-35.9) 01/31/19 07:50 RDW 14.4 % (11.9-15.9) 01/31/19 07:50 Plt Count 178 K/MM3 (134-434) 01/31/19 07:50 MPV 7.4 fl (7.5-11.1) L 01/31/19 07:50 Sodium 142 mmol/L (136-145) 01/31/19 07:50 Potassium 3.6 mmol/L (3.5-5.1) 01/31/19 07:50 Chloride 105 mmol/L (98-107) 01/31/19 07:50 Carbon Dioxide 30 mmol/L (21-32) 01/31/19 07:50 Anion Gap 6 MMOL/L (8-16) L 01/31/19 07:50 BUN 10 mg/dL (7-18) 01/31/19 07:50 Creatinine 0.9 mg/dL (0.55-1.3) 01/31/19 07:50 Est GFR (CKD-EPI)AfAm 103.51 01/31/19 07:50 Est GFR (CKD-EPI)NonAf 89.31 01/31/19 07:50 Random Glucose 105 mg/dL (74-106) 01/31/19 07:50 Calcium 8.7 mg/dL (8.5-10.1) 01/31/19 07:50 Total Bilirubin 0.4 mg/dL (0.2-1) 01/31/19 07:50 AST 26 U/L (15-37) 01/31/19 07:50 ALT 24 U/L (13-61) 01/31/19 07:50 Alkaline Phosphatase 125 U/L (45-117) H 01/31/19 07:50 Total Protein 6.0 g/dl (6.4-8.2) L 01/31/19 07:50 Albumin 3.1 g/dl (3.4-5.0) L 01/31/19 07:50 RPR Titer Nonreactive (NONREACTIVE) 01/31/19 07:50 lab noted - Treatment Hospital Course: Detox Protocol Followed, Detoxed Safely, Responded well, Discharged Condition Good, Rehab Referral Accepted Patient has Accepted a Rehab Referral to: methadone maintenance program - Medication Discharge Medications: Ambulatory Orders Tamsulosin HCl [Flomax] 0.4 mg PO DAILY 14 Days #14 capsule 02/01/19 - Diagnosis (1) Alcohol dependence with uncomplicated withdrawal Current Visit: Yes Status: Acute (2) Methadone maintenance therapy patient Current Visit: Yes Status: Chronic (3) Substance induced mood disorder Current Visit: Yes Status: Suspected - AMA Did Patient Leave Against Medical Advice: No
== END 2019-02-02 17:55 | disposition other institution (70) | DRG 897 ==
LOC: YASAS 16:29 → Y3N 21:18
PROVIDERS: ADMIT Surgery; ATTEND Surgery
PROC: HZ2ZZZZ Detoxification Services for Substance Abuse Treatment (ICD-10-PCS; principal; 2019-01-30)
DX: F10.230 Alcohol dependence with withdrawal, uncomplicated (principal); F11.20 Opioid dependence, uncomplicated; F14.20 Cocaine dependence, uncomplicated; F17.210 Nicotine dependence, cigarettes, uncomplicated; F19.24 Other psychoactive substance dependence with psychoactive substance-induced mood disorder; F32.9 Major depressive disorder, single episode, unspecified; I10 Essential (primary) hypertension; G47.00 Insomnia, unspecified; R00.0 Tachycardia, unspecified; Z85.46 Personal history of malignant neoplasm of prostate; Z92.3 Personal history of irradiation
CPT/HCPCS: 36415; 80053; 85027; 86593

== ENCOUNTER 2019-02-02 18:07 | Inpatient (IN) | payer OTHER | END 2019-02-11 09:43 | disposition home or self-care (01) | LOC: YASAS 18:07 → Y3W 18:09 ==